=== PATIENT | female | born 1970 | race Caucasian/White ===

== ENCOUNTER → 2017-09-08 | Outpatient (CLI) | payer OTHER ==
[~2017-09-08] MED LIST: CALC625T PO; CETI10TA20 PO; DCS100C PO; HYDR-3583 PO; MOTRIN 800MG PO; NAPR250T34 PO
--- NOTE | 2017-09-09 13:06 | Diagnostic Imaging Report ---
Bilateral screening mammogram 2D views with tomosynthesis. The current study was also evaluated with a Computer Aided Detection (CAD) system. INDICATION: Screening. No current complaints stated on the questionnaire. COMPARISON: 09/02/16. FINDINGS: The breasts are composed of heterogeneously dense parenchyma which may decrease mammographic sensitivity. There is a biopsy clip seen in the outer aspect of the left breast. Allowing for technique and positional differences, no suspicious change is seen. IMPRESSION: No significant change. ACR BI-RADS Category 2: Benign findings. Result letter will be mailed to the patient. Note: At least 10% of breast cancer is not imaged by mammography. Dictated on workstation # [id number]
== END ==
LOC: RAD 09:50
PROVIDERS: ATTEND Nurse Practitioner Family
DX: Z12.31 Encounter for screening mammogram for malignant neoplasm of breast (principal)

== ENCOUNTER → 2018-07-10 | Outpatient (CLI) | payer OTHER ==
[2018-07-10 09:26] LABS: BASOPHILS % (AUTO) 0 % (0-10); EOSINOPHILS # (AUTO) 0.1 10^3/uL (0.0-0.3); EOSINOPHILS % (AUTO) 1 % (0-10); HEMATOCRIT 37 % (35-52); HEMOGLOBIN 13.1 G/DL (11.5-16.0); LYMPHOCYTES # (AUTO) 1.3 X 10^3 (1.0-4.0); LYMPHOCYTES % (AUTO) 19 % (12-44); MEAN CORPUSCULAR HEMOGLOBIN 30 PG (25-34); MEAN CORPUSCULAR HGB CONC 35 G/DL (32-36); MEAN CORPUSCULAR VOLUME 86 FL (80-99); MEAN PLATELET VOLUME 10.3 FL (7.4-10.4); MONOCYTES # (AUTO) 0.4 X 10^3 (0.0-1.0); MONOCYTES % (AUTO) 6 % (0-12); NEUTROPHILS # (AUTO) 4.9 X 10^3 (1.8-7.8); NEUTROPHILS % (AUTO) 74 % (42-75); PLATELET COUNT 300 10^3/uL (130-400); RED BLOOD COUNT 4.34 10^6/uL (4.35-5.85); RED CELL DISTRIBUTION WIDTH 13.4 % (10.0-14.5); WHITE BLOOD COUNT 6.6 10^3/uL (4.3-11.0)
[2018-07-10 09:49] LABS: ALANINE AMINOTRANSFERASE 13 U/L (0-55); ALBUMIN 4.4 GM/DL (3.2-4.5); ALKALINE PHOSPHATASE 73 U/L (40-136); BILIRUBIN,TOTAL 0.5 MG/DL (0.1-1.0); BUN/CREATININE RATIO 13; CALCIUM 9.5 MG/DL (8.5-10.1); CARBON DIOXIDE 24 MMOL/L (21-32); CHLORIDE 105 MMOL/L (98-107); CHOLESTEROL 134 MG/DL (< 200); GFR ESTIMATED > 60; GLUCOSE 103 MG/DL (70-105); HDL CHOLESTEROL 40 MG/DL (40-60); POTASSIUM 4.3 MMOL/L (3.6-5.0); SODIUM 139 MMOL/L (135-145); TOTAL PROTEIN 7.5 GM/DL (6.4-8.2); TRIGLYCERIDES 82 MG/DL (<150); VLDL CHOLESTEROL 16 MG/DL (5-40)
[2018-07-10 10:13] LABS: FREE T4 (FREE THYROXINE) 1.12 NG/DL (0.70-1.48)
== END ==
LOC: LAB 09:10
PROVIDERS: ATTEND Family Medicine
DX: Z00.00 Encounter for general adult medical examination without abnormal findings (principal); R73.9 Hyperglycemia, unspecified
CPT/HCPCS: 36415; 80053; 80061; 83036; 84439; 84443; 85025

== ENCOUNTER → 2018-09-21 | Outpatient (CLI) | payer OTHER ==
--- NOTE | 2018-09-21 19:10 | Diagnostic Imaging Report ---
INDICATION: Routine screening. COMPARISON: Comparison is made with prior mammograms from 09/08/2017 and 09/02/2016. TECHNIQUE: 2D and 3D bilateral screening mammography was performed with computer-aided detection (CAD) system. FINDINGS: Both breasts are heterogeneously dense, limiting the sensitivity of mammography. Biopsy clip in the outer right breast is again noted. No dominant mass or malignant-appearing microcalcifications are seen. The axillae are unremarkable. IMPRESSION: No mammographic features suspicious for malignancy are identified. ACR BI-RADS Category 2: Benign findings. Result letter will be mailed to the patient. Note: At least 10% of breast cancer is not imaged by mammography. Dictated by: Dictated on workstation # [id number]
== END ==
LOC: RAD 09:24
PROVIDERS: ATTEND Nurse Practitioner Family
DX: Z12.31 Encounter for screening mammogram for malignant neoplasm of breast (principal)
CPT/HCPCS: 77067

== ENCOUNTER → 2018-11-27 | Outpatient (CLI) | payer OTHER ==
[2018-11-27 14:50] LABS: BASOPHILS % (AUTO) 1 % (0-10); EOSINOPHILS # (AUTO) 0.2 10^3/uL (0.0-0.3); EOSINOPHILS % (AUTO) 2 % (0-10); HEMATOCRIT 38 % (35-52); HEMOGLOBIN 13.3 G/DL (11.5-16.0); LYMPHOCYTES % (AUTO) 23 % (12-44); MEAN CORPUSCULAR HEMOGLOBIN 30 PG (25-34); MEAN CORPUSCULAR HGB CONC 35 G/DL (32-36); MEAN CORPUSCULAR VOLUME 85 FL (80-99); MEAN PLATELET VOLUME 9.7 FL (7.4-10.4); MONOCYTES # (AUTO) 0.8 X 10^3 (0.0-1.0); MONOCYTES % (AUTO) 9 % (0-12); NEUTROPHILS # (AUTO) 5.8 X 10^3 (1.8-7.8); NEUTROPHILS % (AUTO) 66 % (42-75); PLATELET COUNT 323 10^3/uL (130-400); RED CELL DISTRIBUTION WIDTH 14.4 % (10.0-14.5); WHITE BLOOD COUNT 8.8 10^3/uL (4.3-11.0)
[2018-11-27 15:10] LABS: ALANINE AMINOTRANSFERASE 13 U/L (0-55); ALBUMIN 4.2 GM/DL (3.2-4.5); ALKALINE PHOSPHATASE 79 U/L (40-136); BILIRUBIN,TOTAL 0.2 MG/DL (0.1-1.0); BUN/CREATININE RATIO 16; CALCIUM 9.5 MG/DL (8.5-10.1); CARBON DIOXIDE 26 MMOL/L (21-32); CHLORIDE 103 MMOL/L (98-107); CREATININE SERUM 0.88 MG/DL (0.60-1.30); GFR ESTIMATED > 60; GLUCOSE 113 MG/DL (70-105); POTASSIUM 3.9 MMOL/L (3.6-5.0); SODIUM 137 MMOL/L (135-145); TOTAL PROTEIN 7.4 GM/DL (6.4-8.2)
== END ==
LOC: LAB 13:56
PROVIDERS: ATTEND Family Medicine
DX: N93.9 Abnormal uterine and vaginal bleeding, unspecified (principal); R53.83 Other fatigue
CPT/HCPCS: 36415; 80053; 84439; 84443; 85025

== ENCOUNTER → 2018-12-04 | Outpatient (CLI) | payer OTHER ==
--- NOTE | 2018-12-04 17:02 | Diagnostic Imaging Report ---
INDICATION: Cramping and bleeding. TECHNIQUE: Multiple real-time grayscale images were obtained over the pelvis in various projections both transabdominally and endovaginally. FINDINGS: The uterus measures 11 x 6.8 x 5.6 cm. Endometrial thickness is 8 mm. There appears to be a 2.3 cm fibroid in the fundus of the uterus. Both ovaries are normal in size and morphology and demonstrate normal blood flow. There is a 2.8 cm right ovarian cyst. There is a 1.7 cm left ovarian cyst. There are no other adnexal masses. There is no free pelvic fluid. IMPRESSION: Fundal fibroid. Bilateral ovarian cysts. Dictated by: Dictated on workstation # [id number]
== END ==
LOC: RAD 14:20
PROVIDERS: ATTEND Family Medicine
DX: D25.9 Leiomyoma of uterus, unspecified (principal)
CPT/HCPCS: 76830; 76856

== ENCOUNTER 2019-02-28 11:31 | Outpatient (CLI) | payer OTHER ==
[~2019-02-28] VITALS: Ht 172.7 cm; Wt 97.5 kg
[2019-02-28] MEDS ORDERED: LISI1TAB10 PO (11:41)
[2019-02-28 12:09] LABS: BASOPHILS % (AUTO) 0 % (0-10); EOSINOPHILS # (AUTO) 0.1 10^3/uL (0.0-0.3); EOSINOPHILS % (AUTO) 1 % (0-10); HEMATOCRIT 37 % (35-52); HEMOGLOBIN 12.6 G/DL (11.5-16.0); LYMPHOCYTES # (AUTO) 1.5 X 10^3 (1.0-4.0); LYMPHOCYTES % (AUTO) 19 % (12-44); MEAN CORPUSCULAR HEMOGLOBIN 29 PG (25-34); MEAN CORPUSCULAR HGB CONC 34 G/DL (32-36); MEAN CORPUSCULAR VOLUME 84 FL (80-99); MEAN PLATELET VOLUME 9.4 FL (7.4-10.4); MONOCYTES # (AUTO) 0.5 X 10^3 (0.0-1.0); MONOCYTES % (AUTO) 6 % (0-12); NEUTROPHILS # (AUTO) 5.7 X 10^3 (1.8-7.8); NEUTROPHILS % (AUTO) 74 % (42-75); PLATELET COUNT 324 10^3/uL (130-400); RED CELL DISTRIBUTION WIDTH 13.7 % (10.0-14.5); WHITE BLOOD COUNT 7.7 10^3/uL (4.3-11.0)
[2019-02-28 12:18] VITALS: BP 128/81
== END 2019-02-28 12:00 | disposition home or self-care (01) ==
LOC: PREOP 11:31
PROVIDERS: ATTEND Obstetrics & Gynecology
DX: Z01.812 Encounter for preprocedural laboratory examination (principal); Z11.2 Encounter for screening for other bacterial diseases; N93.8 Other specified abnormal uterine and vaginal bleeding; N92.1 Excessive and frequent menstruation with irregular cycle; N94.6 Dysmenorrhea, unspecified; N39.3 Stress incontinence (female) (male); D64.9 Anemia, unspecified
CPT/HCPCS: 36415; 85025; 86850; 86900; 86901; 87081

== ENCOUNTER 2019-03-09 10:28 | Day surgery (SDC) | payer OTHER ==
[2019-03-09] VITALS (11 sets, daily range): BP systolic 99–132; BP diastolic 45–77
[~2019-03-09] VITALS: Ht 172.7 cm; Wt 97.5 kg
--- NOTE | 2019-03-09 07:25 | Progress Note-Pre Operative ---
Pre-Operative Progress Note H&P Reviewed The H&P was reviewed, patient examined and no changes noted. Date Seen by Provider: Mar 09, 2019 Time Seen by Provider: 11:20 Date H&P Reviewed: Mar 09, 2019 Time H&P Reviewed: 11:20 Pre-Operative Diagnosis: NAS SIMS MD Mar 09, 2019 07:25
[~2019-03-09 10:28] MED LIST changes: +DOCU-143 PO; +ESTR1TAB24 PO; +IBUP-1780 PO; +LISI1TAB10 PO; +OXYC1TAB87 PO
[2019-03-09] MEDS ORDERED: ESTROGENS CONJ IV 25 MG/5 ML (PREMARIN) VIAL IV ONE (10:30)
[2019-03-09] MEDS ORDERED: ceFAZolin INJECTION 1,000 MG in WATER (STERILE) FOR INJECTION 10 ML IV ONE (10:30)
[2019-03-09] MEDS: LACTATED RINGERS 1,000 ML IV PRN ×2 (10:55→12:28)
[2019-03-09] MEDS ORDERED: ONDANSETRON 4 MG/2 ML (SDV) Z0FRAN ONE (11:09)
[2019-03-09] MEDS ORDERED: DEXAMETHASONE 10 MG/ML (DECADRON) 1 ML VIAL ONE (11:09)
[2019-03-09] MEDS ORDERED: proPOfol 200 MG/20 ML (DIPRIVAN) VIAL IV ONE (11:09)
[2019-03-09] MEDS ORDERED: LIDOCAINE PF 2% 5 ML (XYLOCAINE) VIAL ONE (11:09)
[2019-03-09] MEDS ORDERED: SEVOFLURANE (ULTANE) 15 ML INHAL SOLN ONE ×9 (11:09→14:01)
[2019-03-09] MEDS ORDERED: ROCURONIUM 10 MG/ML 5 ML SYRINGE IV ONE ×2 (11:09→13:31)
[2019-03-09] MEDS ORDERED: fentaNYL INJECTION 100 MCG/2 ML AMP ONE (11:10)
[2019-03-09] MEDS ORDERED: MIDAZOLAM 2 MG/2 ML (VERSED) VIAL ONE (11:10)
[2019-03-09] MEDS ORDERED: BUP/EPI 0.25% 1:200,000 (MARCAINE) 10 ML VIAL IJ ONE (11:17)
[2019-03-09] MEDS ORDERED: ESTRADIOL VAGINAL CREAM 42.5 GM (ESTRACE) VG ONE (11:17)
--- NOTE | 2019-03-09 11:39 | Progress Note-Pre Operative ---
Pre-Operative Progress Note H&P Reviewed The H&P was reviewed, patient examined and no changes noted. Date Seen by Provider: Mar 09, 2019 Time Seen by Provider: 11:39 Date H&P Reviewed: Mar 09, 2019 Time H&P Reviewed: 11:39 Pre-Operative Diagnosis: DUB/Prolapse/JESS/menorrhagia AGNES BARRIGA MD Mar 09, 2019 11:39
--- NOTE | 2019-03-09 11:41 | Progress Note-Post Operative ---
Post-Operative Progess Note Surgeon (s)/Jackhammer Operator (s) Surgeon AGNES BARRIGA MD Jackhammer Operator: Floridalma Ramos Pre-Operative Diagnosis DUB/Prolapse/JESS/menorrhagia Post-Operative Diagnosis same Procedure & Operative Findings Date of Procedure 03/09/19 Procedure Performed/Findings TLH/BSO/A&Prepair and concurrent PVS and Cysto by Dr. Pepper Anesthesia Type geta Estimated Blood Loss Estimated blood loss (mL): 150 cc Specimens/Packing Specimens Removed uterus tubes and ovaries Packing: AGNES Clancy MD Mar 09, 2019 11:41
--- NOTE | 2019-03-09 11:44 | Discharge Instructions ---
Discharge Instructions Discharge Medications New, Converted or Re-Newed RX: RX on Chart Patient Instructions Patient Instructions: yes Return to The Hospital For: yes Activity & Diet Discharge Diet: No Restrictions Activity as Tolerated: No Orders-Post D/C & Referrals Follow Up Appt: RTC Tuesday March 12, 2019 at 930 AM for staple removal Call to make follow up appt. for patient in 4 weeks. Follow up with Dr Pepper per his instructions Activity: Rest for 24 hours, than as tolerated. Wound Care: May remove Band-Aid tomorrow. Replace as desired. Keep incisions clean and dry. Wash daily with soap and water. Please call in RX to patient pharmacy. Diet: As tolerated-Clear Liquids only if nauseated. shower or tub bathe as desired. No driving for 24 hours, no alcoholic beverages for 24 hours, and nothing per vagina (no tampons, douching, or intercourse) for 8 weeks. Patient to return to the clinic as soon as possible for: Temperature greater than 101F, Severe Pain, Foul discharge from incision or vagina, Excessive Bleeding (more than a period). AGNES BARRIGA MD Mar 09, 2019 11:44
[2019-03-09] MEDS ORDERED: ATROPINE INJ 0.4 MG/ML SDV ONE (12:17)
[2019-03-09] MEDS ORDERED: WATER (STERILE) FOR INJECTION 10 ML ONE (13:06)
[2019-03-09] MEDS ORDERED: ESTROGENS CONJ IV 25 MG/5 ML (PREMARIN) VIAL ONE (13:06)
[2019-03-09] MEDS ORDERED: KETOROLAC 30 MG/ML VIAL ONE ×2 (13:07→14:00)
[2019-03-09] MEDS ORDERED: GLYCOPYRROLATE 0.2 MG/ML (ROBINUL) 2 ML VIAL ONE (13:59)
[2019-03-09] MEDS ORDERED: NEOSTIGMINE 1 MG/ML 5 ML SYRINGE ONE (13:59)
--- NOTE | 2019-03-09 13:59 | Progress Note-Post Operative ---
Post-Operative Progess Note Surgeon (s)/Scudding Inspector (s) Surgeon NAS GAMEZ MD Scudding Inspector: Kenia BARRIGA Pre-Operative Diagnosis JESS Post-Operative Diagnosis JESS Procedure & Operative Findings Date of Procedure 03/09/19 Procedure Performed/Findings PVS AND CYSTOSCOPY Anesthesia Type GENERAL Estimated Blood Loss Estimated blood loss (mL): NEGLIGIBLE Specimens/Packing Specimens Removed NONE Packing: ESTRACE VAGINAL PACK NAS GAMEZ MD Mar 09, 2019 13:59
[2019-03-09] MEDS: KETOROLAC 30 MG/ML VIAL IVP SCH ×2 (14:15→19:58)
[2019-03-09] MEDS ORDERED: PROMETHAZINE INJ 25 MG/ML (PHENERGAN) AMP IVP ONE (14:30)
[2019-03-09] MEDS ORDERED: HYDROmorphone 2 MG/ML VIAL (DILAUDID) IV ONE (14:30)
[2019-03-09] MEDS ORDERED: morphine INJ 10 MG/ML 1ML (SYR OR VIAL) IVP ONE (14:30)
[2019-03-09] MEDS ORDERED: ONDANSETRON 4 MG/2 ML (SDV) Z0FRAN IVP PRN ×2 (14:30→15:45)
[2019-03-09] MEDS ORDERED: MEPERIDINE (DEMEROL) INJ 50 MG/ML IVP ONE (14:30)
[2019-03-09] MEDS: ESTROGENS CONJ IV 25 MG/5 ML (PREMARIN) VIAL IVP ONE (14:35)
--- NOTE | 2019-03-09 15:30 | NUR ---
BRENNAN ARANGO admitted to room , with an admitting diagnosis of POSTOP ROBOTIC HYSTERECTOMY WITH PUBO VAG SLING AND CYSTO, A/P REPAIR, on 03-09-19 from [facility] via [facility], accompanied by CLOTHES DRIER REPAIRER.BRENNAN ARANGO introduced to surroundings, call light, bed controls, phone, TV, temperature control, lights, meal times, smoking policy, visitor policy, side rail policy, bathrooms and showers. Patient Rights given to patient in the handbook. BRENNAN ARANGO verbalizes understanding that [facility] is not responsible for the loss or damage to any personal effects or valuables that are kept in the patients posession during their hospitalization. The following Patient Care Plans were discussed with the PATIENT: Discharge Planning, PAIN MANANGEMENT, POSTOP POC. BRENNAN ARANGO verbalizes understanding of Interdisciplinary Patient Education. Patient and/or family were informed about the Rapid Response Team and its purpose.
[2019-03-09] MEDS ORDERED: BENZOCAINE/MENTHOL (DERMOPLAST) 56 ML CAN TP PRN (15:45)
[2019-03-09] MEDS ORDERED: PROMETHAZINE INJ 25 MG/ML (PHENERGAN) AMP IM PRN (15:45)
[2019-03-09] MEDS ORDERED: MEPERIDINE (DEMEROL) INJ 100 MG/ML IM PRN (15:45)
[2019-03-09] MEDS ORDERED: WATER (STERILE) FOR INJ 10 ML BTL INJ ONE (15:45)
[2019-03-09] MEDS: D5 LR IV SOLUTION 1,000 ML IV SCH (17:45)
[2019-03-09] MEDS: oxyCODONE/APAP 5/325MG (PERCOCET 5) TABLET PO PRN (18:13)
--- NOTE | 2019-03-09 18:20 | NUR ---
report received form ricki vazquez at this time
--- NOTE | 2019-03-09 19:05 | NUR ---
report given to emely robison at this time.
--- NOTE | 2019-03-09 19:42 | OPERATIVE REPORT ---
DATE OF SERVICE: 03/09/2019 PREOPERATIVE DIAGNOSIS: Stress urinary incontinence, on my part. POSTOPERATIVE DIAGNOSIS: Stress urinary incontinence, on my part. OPERATION PERFORMED: Pubovaginal sling and cystoscopy. SURGEON: Nas Gamez MD ROTO ROOTER OPERATOR: Jair Jules MD ANESTHESIA: General. COMPLICATIONS: None. DESCRIPTION OF PROCEDURE: After Dr. Jules performed his part of the surgery that he would dictate, I went ahead and inserted a Mejias catheter draining clear urine. The Solyx device was passed on both sides using the described technique and the sling was sitting nicely under the mid urethra with no twisting, no tension, passage of a curved hemostat between it and the underlying tissue easily. I removed the Mejias catheter and performed cystoscopy to confirm the integrity of the urethra and bladder with no foreign body and the presence of the sling under the mid urethra. I left the bladder half full. I removed the cystoscope to perform a manual Valsalva maneuver that was negative. I reinserted a Mejias catheter draining clear fluid. Estimated blood loss for my part negligible then Dr. Jules performed the rest of the surgery that he will dictate. Job ID: [id number] DocumentID: [id number] Dictated Date: 03/09/2019 14:01:46 Control Equipment Electrician Date: 03/09/2019 19:42:26 Dictated By: NAS GAMEZ MD
[2019-03-10 00:11] VITALS: BP 115/71
[2019-03-10] MEDS: oxyCODONE/APAP 5/325MG (PERCOCET 5) TABLET PO PRN (00:11)
[2019-03-10] MEDS: D5 LR IV SOLUTION 1,000 ML IV SCH ×2 (02:06→08:27)
[2019-03-10] MEDS: KETOROLAC 30 MG/ML VIAL IVP SCH ×2 (02:43→08:21)
--- NOTE | 2019-03-10 04:53 | OPERATIVE REPORT ---
DATE OF SERVICE: 03/09/2019 PREOPERATIVE DIAGNOSES: Dysfunctional uterine bleeding, uterine prolapse, stress urinary incontinence and menorrhagia. POSTOPERATIVE DIAGNOSES: Dysfunctional uterine bleeding, uterine prolapse, stress urinary incontinence and menorrhagia with pelvic adhesions. OPERATIVE PROCEDURE: Total laparoscopic hysterectomy with bilateral salpingo-oophorectomy as well as anterior, posterior vaginal repair with enterocele repair and with Dr. Pepper performing a pubovaginal sling and cystoscopy. OPERATIVE DESCRIPTION: With the patient in the supine position under satisfactory general anesthesia, she was repositioned in dorsal lithotomy position in the [facility] and prepped and draped in the usual manner for abdominal and vaginal surgery. Urinary bladder was drained via Mejias catheter to dependent drainage. A weighted speculum was placed in posterior fornix of vagina, cervix exposed and grasped anteriorly with a single tooth tenaculum. Uterus sounded to 12.5 cm with uterine sound. Cervix was then serially dilated with Max dilators to accommodate a Nanette II manipulator, which was placed in the usual manner using a 6 mm x 8 cm uterine probe and a 25 mm colpotomy ring. Sutures of #1 Vicryl placed at 3 and 9 o'clock position of the cervix to affix the uterus to the manipulator. The patient was brought in low dorsal lithotomy position a 12 mm incision was made superior to the umbilicus. Veress needle was placed through that incision into the abdominal cavity and then correct placement was confirmed with the water drop test. The abdomen was insufflated with 2.4 liters of carbon dioxide and then the Veress needle was removed and an attempt was made to aspirate gas from the intended cord site with a 1.5-inch 22-gauge needle. Gas could not be aspirated even though the abdomen was tympanitic. Gas could easily be aspirated at the left upper quadrant in both lateral periumbilical regions. I suspected adhesions in the intended area for the port placement, so rather than placing a 12 mm port, I placed a 5 mm Optiview laparoscopic port under direct vision in the left upper quadrant. Through that port, the laparoscope was introduced. There was obvious omental adhesions to the abdominal wall just above the umbilicus where a 12 mm port needed to be placed. The lateral 8 mm ports were placed for the hysterectomy through incisions of those sizes 9 cm lateral to the umbilicus. All port sites were infiltrated with 0.25% Marcaine with epinephrine prior to incision and port placement. With those ports in place using EndoShears through the left lateral port, the adhesions on the anterior abdominal wall were taken down sharply and with electrocautery until the entire omentum was freed exposing the anterior abdominal wall. The 1.5 gauge needle could then be inserted and seen clearly right in the midst where this dissection had taken place. Now under direct vision, the 12 mm port was placed. This port was found to be just a bit too short, so it was removed over an exchanging duy and then a long 12 mm port was replaced into position. The patient was now placed in Trendelenburg allowing the bowel spill out of the pelvis. The operative column was advanced on the patient and docked and then operative instruments were placed in right and left lateral ports and I retired to the da Haydee console. At the console using the vessel sealer on the right, bipolar fenestrated grasper on the left, the pelvis was first examined. Both the right ovary and tube were relatively normal in appearance. The right ureter was seemed to peristalse. The left tube and ovary were obscured by adhesions of the sigmoid over the left pelvic brim. These adhesions were generally light and filmy and were clamped, cauterized and divided using the vessel sealer until the bowel could spill up out of the pelvis, exposing the IP ligament completely and also exposing access to the left tube and ovary, which were adherent to the ovarian fossa on the left and the sigmoid was adherent to that as well. Those adhesions were taken free and eventually with all adhesions freed, the anatomy restored to normal. The left ureter could seem to be peristalsing. The laparoscope was then rotated. The appendix was identified. It was a normal vermiform appendix that was left in situ. The intended procedure was now initiated, grasping and elevating the right fallopian tube and ovary and using the vessel sealer to clamp, cauterize and divide the mesovarium across the round ligament and then across the broad ligaments to the cardinal ligament down on the cardinal ligament to allow eventually for removal of the uterus. The same procedure was performed on the left. The left side of the pelvis was somewhat dense and fibrotic. The ureter was well down out of the way, but then the tissue was restricting the movement of the uterus quite a bit and that tissue was taken down and the uterus became more mobile and free. With the adnexa freed, the anterior lower uterine segment peritoneum was exposed. The vessel sealer was replaced with a monopolar shear and then the anterior lower uterine segment peritoneum was divided allowing the bladder to be dissected down off the lower uterine segment. The colpotomy incision was then started at 12 o'clock position on the cervix and then continued circumferentially and entire cervix was exposed. This freed the uterus completely and it was extracted through the vagina with some difficulty secondary to the size of the uterus, which had obvious fibroids and likely endometriosis. Eventually, it was passed through the vagina with the tubes and ovaries still attached and the vaginal cuff was closed with 2 sutures of V-Loc barbed suture starting first from the right angle and continuing almost to the left angle and then using a second suture from the left angle to finish the closure. Care was taken to ensure inclusion of the uterine vessel pedicles in the angle stitches. The bladder peritoneum was brought back onto the cuff with the last several stitches using suture. Both ureters were confirmed to peristalse. There was no abnormal pathology remaining. There was minimal amount of blood in the pelvis. At this point, the laparoscopic portion of the procedure was halted. The operative instruments were removed under direct vision as were the ports. The abdomen was evacuated of insufflating gas in the process of removing the ports. The patient was brought out of Trendelenburg. The skin incisions were closed with yamilka after closing the fascia at the supraumbilical incision with [id number] suture of 2-0 Vicryl. The patient now repositioned for the vaginal portion of the surgery. She was positioned in the dorsal lithotomy position. Weighted speculum was placed in the posterior fornix of vagina. The vaginal wall was grasped in its midpoint with two Sonali clamps and then a vaginotomy incision was made in the midline and continued almost to the apex of the vagina to approximately 1.5 cm from the urethral meatus. Very careful dissection was undertaken to free the bladder from the overlying vaginal muscularis mucosa. The dissection was carried out to the pubic rami bilaterally. Then endopelvic fascia was plicated with 2-0 Vicryl sutures, elevating the bladder and lengthening the urethra. At this point, Dr. Pepper assumed care of the patient and I remained to assist Dr. Pepper. Dr. Pepper performed a pubovaginal sling and cystoscopy without difficulty. He confirmed the integrity of the bladder and the evidence of urine efflux in to the bladder from both ureters. Upon completion of his portion of the procedure, he retired from the operating room and I resumed care of the patient and I closed the anterior vaginal wall after removing redundant vaginal tissue. Posterior repair was then affected by placing Sonali clamps on the perineum and the hymenal ring at 5 and 7 o'clock position and inverted triangle of skin was removed from the perineal body and upright triangle was removed from the posterior vaginal floor. The rectovaginal space was entered sharply and dissected bluntly to the apex of the vagina where it was explored for an enterocele it being a small enterocele that was obliterated with a 2-0 Vicryl pursestring suture and then additional sutures of 2-0 Vicryl were used to obliterate the rectovaginal space and to restore the perineal body. The posterior vaginal wall was then closed with a running locked suture of 2-0 Vicryl Rapide starting from the apex of the vagina after removal of redundant posterior vaginal wall muscularis mucosa that closure was continued down to the hymenal ring where it was brought deep behind the hymenal ring and then the deep tissue was closed subcutaneously and then the perineal body wall was reapproximated with a running subcuticular stitch back up to the hymenal ring where the suture was tied. Digital rectal exam confirmed the structure and integrity of the rectum and no sutures into or through the rectal mucosa and stricture or stenosis of the rectum. The vagina was now filled with Estrace vaginal cream and a pack of Kerlix gauze was placed. The Mejias catheter was left to dependent drainage. At this point, the patient was uneventfully awakened from general anesthesia and transferred to recovery room in stable condition. ESTIMATED BLOOD LOSS: Around 150 mL, the bulk of that from the vaginal portion of procedure. Sponge and needle counts again were correct. Job ID: [id number] DocumentID: [id number] Dictated Date: 03/09/2019 19:42:46 Hospice Home Health Aide Date: 03/09/2019 22:17:51 Dictated By: AGNES BARRIGA MD
[2019-03-10 06:10] VITALS: BP 104/63
[2019-03-10] MEDS: ESTROGENS CONJ IV 25 MG/5 ML (PREMARIN) VIAL IVP ONE (08:27)
[2019-03-10] MEDS ORDERED: IBUPROFEN 800 MG (MOTRIN) TAB PO ONE (08:28)
[2019-03-10 08:37] VITALS: BP 119/69
--- NOTE | 2019-03-10 08:37 | NUR ---
AM shift assessment completed and vital signs obtained, see interventions. Scheduled Colace, Estrace, Motrin, and Zyrtec (Home Med) PO given at this time. Patient reports taking the other Home Med at night time. Plan of care reviewed with patient and patient verbalizes understanding. Questions answered.
--- NOTE | 2019-03-10 08:48 | NUR ---
Patient up ambulating in the halls.
[2019-03-10] MEDS ORDERED: LISINOPRIL PO SCH (09:00)
[2019-03-10] MEDS ORDERED: DOCUSATE SODIUM 100 MG (COLACE) CAP PO SCH (09:00)
[2019-03-10] MEDS ORDERED: HYDROCHLOROTHIAZIDE PO SCH (09:00)
[2019-03-10] MEDS ORDERED: ceTIRizine 10 MG (ZyrTEC) TAB NON-FORMULARY PO SCH (09:00)
[2019-03-10] MEDS ORDERED: ESTRADIOL 1 MG TAB (ESTRACE) PO SCH (09:00)
--- NOTE | 2019-03-10 09:30 | NUR ---
Dr. Jules here to see patient. New orders received.
--- NOTE | 2019-03-10 09:32 | Progress Note-Standard ---
Standard Progress Note Progress Notes/Assess & Plan Date Seen by a Provider: Mar 10, 2019 Time Seen by a Provider: 09:32 Progress/Assessment & Plan Patient is without complaint. She is ambulating, she has started voiding, she is tolerating oral intake and has good pain control. Vital Signs 03/09/19 03/10/19 15:10 06:10 Temp 98.4 Pulse 85 Resp 18 B/P (MAP) 104/63 (77) Pulse Ox 98 O2 Delivery Room Air O2 Flow Rate 3 Vital signs are stable. Afebrile. The abdomen is benign. Bowel sounds are present. Extremities show no clubbing or cyanosis. As the Homans sign. Assessment and plan postoperative day number 1 oil plans for discharge home with follow-up in clinic Final Diagnosis Dysfunctional uterine bleeding/menorrhagia/uterine prolapse and stress urinary incontinence AGNES BARRIGA MD Mar 10, 2019 09:32
--- NOTE | 2019-03-10 09:33 | NUR ---
Patient up ambulating in the halls.
--- NOTE | 2019-03-10 10:27 | Anesthesia-General Post-Op ---
General Patient Condition Mental Status/LOC: Same as Preop Cardiovascular: Satisfactory Nausea/Vomiting: Absent Respiratory: Satisfactory Pain: Controlled Complications: Absent Post Op Complications Complications None Follow Up Care/Instructions Patient Instructions None needed. Anesthesia/Patient Condition Patient Condition Patient is doing well, no complaints, stable vital signs, no apparent adverse anesthesia problems. No complications reported per nursing. DALILA LOW CRNA Mar 10, 2019 10:27
--- NOTE | 2019-03-10 11:06 | NUR ---
Dr. Pepper called to check on patient's status. New orders received.
--- NOTE | 2019-03-10 12:05 | NUR ---
Patient up ambulating in halls.
--- NOTE | 2019-03-10 12:25 | NUR ---
Patient reported voiding. 200 cc clear urine noted. Bladder scan performed showing 130 ml residual.
[2019-03-10 12:30] VITALS: BP 125/72
--- NOTE | 2019-03-10 12:37 | NUR ---
Dr. Pepper updated on patient's status. New orders received.
[2019-03-10] MEDS ORDERED: IBUP-1780 PO (12:52)
--- NOTE | 2019-03-10 13:04 | NUR ---
Discharge instructions and medications reviewed with patient both written and verbally. Patient verbalizes understanding and denies any current questions or concerns at this time.
--- NOTE | 2019-03-10 13:25 | NUR ---
Patient discharged at this time via wheelchair and accompanied down to awaiting private vehicle by Karen Nguyen RN. No signs or symptoms of distress noted.
[2019-03-10] MEDS ORDERED: IBUPROFEN 800 MG (MOTRIN) TAB PO SCH (15:45)
== END 2019-03-10 13:25 | disposition home or self-care (01) ==
LOC: SDC 10:28 → WS 15:30 → SDC 03-10 13:25
PROVIDERS: ATTEND Obstetrics & Gynecology
DX: N81.4 Uterovaginal prolapse, unspecified (principal); N39.3 Stress incontinence (female) (male); N93.8 Other specified abnormal uterine and vaginal bleeding; N72 Inflammatory disease of cervix uteri; N88.8 Other specified noninflammatory disorders of cervix uteri; D25.1 Intramural leiomyoma of uterus; D25.2 Subserosal leiomyoma of uterus; N83.11 Corpus luteum cyst of right ovary; D27.1 Benign neoplasm of left ovary; N92.0 Excessive and frequent menstruation with regular cycle; I10 Essential (primary) hypertension; Z79.899 Other long term (current) drug therapy
CPT/HCPCS: 84703; 86850; 86900; 86901; 88307; 94664

== ENCOUNTER → 2019-09-24 | Outpatient (CLI) | payer OTHER ==
--- NOTE | 2019-09-24 09:57 | Diagnostic Imaging Report ---
INDICATION: Routine screening. Comparison is made with prior mammogram from 09/21/2018 and 09/08/2017. 2-D and 3-D bilateral screening mammography was performed with CAD. Both breasts are heterogeneously dense, limiting the sensitivity of mammography. Parenchymal pattern is stable. Biopsy clip outer right breast is again noted. No dominant mass or malignant-appearing microcalcifications are seen. Axillae are unremarkable. IMPRESSION: BI-RADS Category 2 No mammographic features suspicious for malignancy are identified. ACR BI-RADS Category 2: Benign findings. Result letter will be mailed to the patient. Note: At least 10% of breast cancer is not imaged by mammography. Dictated by: Dictated on workstation # [id number]
== END ==
LOC: RAD 08:17
PROVIDERS: ATTEND Family Medicine
DX: Z12.31 Encounter for screening mammogram for malignant neoplasm of breast (principal)
CPT/HCPCS: 77067

== ENCOUNTER 2020-05-06 13:00 | Outpatient (RCR) | payer OTHER ==
[~2020-05-06 13:00] MED LIST changes: -CETI10TA20 PO; +CETI10TA49 PO; -LISI1TAB10 PO; +LISI1TAB26 PO
== END 2020-07-02 | disposition home or self-care (01) ==
PROVIDERS: ATTEND Orthopaedic Surgery
DX: M75.01 Adhesive capsulitis of right shoulder (principal)

== ENCOUNTER → 2020-05-30 | Outpatient (CLI) | payer OTHER ==
[~2020-05-30] MED LIST changes: +CETI10TA21 PO; -CETI10TA49 PO
[2020-05-30 07:52] LABS: BASOPHILS % (AUTO) 0 % (0-10); EOSINOPHILS # (AUTO) 0.1 10^3/uL (0.0-0.3); EOSINOPHILS % (AUTO) 2 % (0-10); HEMATOCRIT 37 % (35-52); HEMOGLOBIN 12.9 G/DL (11.5-16.0); LYMPHOCYTES # (AUTO) 1.5 X 10^3 (1.0-4.0); LYMPHOCYTES % (AUTO) 23 % (12-44); MEAN CORPUSCULAR HEMOGLOBIN 30 PG (25-34); MEAN CORPUSCULAR HGB CONC 35 G/DL (32-36); MEAN CORPUSCULAR VOLUME 85 FL (80-99); MEAN PLATELET VOLUME 9.4 FL (7.4-10.4); MONOCYTES # (AUTO) 0.5 X 10^3 (0.0-1.0); MONOCYTES % (AUTO) 7 % (0-12); NEUTROPHILS # (AUTO) 4.6 X 10^3 (1.8-7.8); NEUTROPHILS % (AUTO) 69 % (42-75); PLATELET COUNT 316 10^3/uL (130-400); RED CELL DISTRIBUTION WIDTH 13.3 % (10.0-14.5); WHITE BLOOD COUNT 6.7 10^3/uL (4.3-11.0)
[2020-05-30 08:15] LABS: ALANINE AMINOTRANSFERASE 11 U/L (0-55); ALKALINE PHOSPHATASE 84 U/L (40-136); BILIRUBIN,TOTAL 0.5 MG/DL (0.1-1.0); BUN/CREATININE RATIO 13; CALCIUM 9.2 MG/DL (8.5-10.1); CARBON DIOXIDE 24 MMOL/L (21-32); CHLORIDE 105 MMOL/L (98-107); CHOLESTEROL 155 MG/DL (< 200); CREATININE SERUM 0.89 MG/DL (0.60-1.30); GFR ESTIMATED > 60; GLUCOSE 105 MG/DL (70-105); HDL CHOLESTEROL 47 MG/DL (40-60); POTASSIUM 4.1 MMOL/L (3.6-5.0); SODIUM 138 MMOL/L (135-145); TRIGLYCERIDES 127 MG/DL (<150); VLDL CHOLESTEROL 25 MG/DL (5-40)
[2020-05-30 08:36] LABS: FREE T4 (FREE THYROXINE) 0.98 NG/DL (0.70-1.48)
== END ==
LOC: LAB 07:35
PROVIDERS: ATTEND Family Medicine
DX: Z00.00 Encounter for general adult medical examination without abnormal findings (principal); I10 Essential (primary) hypertension; E78.2 Mixed hyperlipidemia; R73.9 Hyperglycemia, unspecified
CPT/HCPCS: 36415; 80053; 80061; 83036; 84439; 84443; 85025

== ENCOUNTER → 2020-09-29 | Outpatient (CLI) | payer OTHER ==
[~2020-09-29] MED LIST changes: -CETI10TA21 PO; +CETI10TA49 PO
--- NOTE | 2020-09-29 12:12 | Diagnostic Imaging Report ---
INDICATION: Routine screening. Comparison is made prior mammogram 09/24/2019 and 09/21/2018. 2-D and 3-D bilateral screening mammography was performed with CAD. Both breasts are heterogeneously dense, limiting the sensitivity of mammography. Parenchymal pattern is stable. No dominant mass or malignant appearing microcalcifications are seen. Biopsy clip outer right breast is again noted. Axillae are unremarkable. IMPRESSION: BI-RADS Category 2 No mammographic features suspicious for malignancy are identified. ACR BI-RADS Category 2: Benign findings. Result letter will be mailed to the patient. Note: At least 10% of breast cancer is not imaged by mammography. Dictated by: Dictated on workstation # [id number]
== END ==
LOC: RAD 08:15
PROVIDERS: ATTEND Family Medicine
DX: Z12.31 Encounter for screening mammogram for malignant neoplasm of breast (principal)
CPT/HCPCS: 77063; 77067

== ENCOUNTER 2021-07-15 13:10 | Outpatient (CLI) | payer OTHER ==
[~2021-07-15] VITALS: Ht 170.2 cm; Wt 97.2 kg
[2021-07-15] MEDS ORDERED: CALC-140 PO (13:39)
[2021-07-15] MEDS ORDERED: ZINC50TA58 PO (13:39)
== END 2021-07-15 14:53 ==
LOC: PREOP 13:10
PROVIDERS: ATTEND Internal Medicine
DX: Z01.818 Encounter for other preprocedural examination (principal)

== ENCOUNTER 2021-07-24 06:50 | Day surgery (SDC) | payer OTHER ==
--- NOTE | 2021-07-16 07:07 | HISTORY AND PHYSICAL ---
DATE OF SERVICE: COLONOSCOPY HISTORY AND PHYSICAL DATE OF ADMISSION: . REFERRING PHYSICIAN: Aurelia Logan DO HISTORY OF PRESENT ILLNESS: The patient is a 50-year-old white female referred by Dr. Logan for screening colonoscopy. On initial colonoscopy prior to the age of [address] Corral, she had one polyp. It was repeated 5 years later and reportedly normal. In the past, she had undergone AP resection per Dr. Jules. Prior to this, she was having to alter her truncal positioning while having a bowel movement and straining sounding suspicious for significant stool pocketing due to presumed large rectocele. It resolved after surgery, symptoms, however, over the past several months have been getting worse again without passage of a hard stool. She denies bright red blood per rectum or melena. She denies any associated abdominal pain. Denies otherwise diarrhea or constipation. There is no known family history for colon cancer. PAST MEDICAL HISTORY: Significant for hypertension. PAST SURGICAL HISTORY: Other than an AP repair, significant for total abdominal hysterectomy for benign reasons. SOCIAL HISTORY: She reports no significant alcohol intake and no past smoking history. 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 FAMILY HISTORY: Pertinent for no known family history for GI tract malignancy. REVIEW OF SYSTEMS: CONSTITUTIONAL: Denies night sweats, chills, fever or change in weight. CARDIOVASCULAR: Denies chest pain, orthopnea, PND or pedal edema. PULMONARY: Denies cough, wheezing or shortness of breath. GASTROINTESTINAL: As noted in the HPI. PHYSICAL EXAMINATION: GENERAL: Reveals a pleasant white female, who weighs 214 pounds. VITAL SIGNS: Blood pressure 110/72. HEENT: Unremarkable. Sclerae nonicteric. CHEST: Clear. CARDIOVASCULAR: Reveals a regular rate and rhythm without murmur, S3 or S4. ABDOMEN: Soft, supple without mass, organomegaly or tenderness. EXTREMITIES: Reveal no cyanosis, clubbing or edema. ASSESSMENT AND PLAN: The patient will be set up for a screening colonoscopy. Symptoms suggest the possibility of recurrent rectocele if this is not the case. We did discuss pelvic floor dysfunction and recommendations for a pelvic floor physical therapy. Further recommendations pending colonoscopy results. I thank you for the referral of this pleasant lady. Job ID: [id number] DocumentID: [id number] Dictated Date: 07/08/2021 16:55:03 Bottle Washer Machine Date: 07/08/2021 17:10:24 Dictated By: VISHAL VAZQUEZ MD MTDD
[~2021-07-24] VITALS: Ht 170.2 cm; Wt 97.2 kg
[~2021-07-24 06:50] MED LIST changes: +CALC-140 PO; +ZINC50TA58 PO
[2021-07-24] MEDS ORDERED: LIDOCAINE JELLY 2% 6 ML SYRINGE MM PRN (07:00)
[2021-07-24] MEDS ORDERED: LACTATED RINGERS 1,000 ML IV STA (07:00)
[2021-07-24] MEDS ORDERED: LACTATED RINGERS 1,000 ML IV ONE (07:05)
[2021-07-24 07:16] VITALS: BP 123/82
[2021-07-24] MEDS ORDERED: PROPOFOL INJECTION 50 ML IV ONE (08:00)
[2021-07-24] MEDS ORDERED: MIDAZOLAM 2 MG/2 ML (VERSED) VIAL ONE (08:01)
--- NOTE | 2021-07-24 08:04 | Pre-Op Note & Conscious Sedat ---
Pre-Operative Progress Note H&P Reviewed The H&P was reviewed, patient examined and no changes noted. Date H&P Reviewed: Jul 24, 2021 Time H&P Reviewed: 07:45 Conscious Sedation Pre-Proced ASA Score 2 For ASA 3 and 4: Consider anesthesia and medical clearance. Also, for patients with a history of failed moderate sedation consider anesthesia. Airway Lungs Heart ASA score ASA 1: a normal healthy patient ASA 2: a patient with a mild systemic disease (mid diabetes, controlled hypertension, obesity ASA 3: a patient with a severe systemic disease that limits activity (angina, COPD, prior Myocardial infarction) ASA 4: a patient with an incapacitating disease that is a constant threat to life (CHF, renal failure) ASA 5: a moribund patient not expected to survive 24 hrs. (ruptured aneurysm) ASA 6: a declared brain- patient whose organs are being harvested. For emergent operations, add the letter E after the classification Mallampati Classification Grade 2 Sedation Plan Analgesia, Amnesia, Plan communicated to team members, Discussed options with patient/fam, Discussed risks with patient/fam The patient is an appropriate candidate to undergo the planned procedure, sedation, and anesthesia. The patient immediately re-assessed prior to indication. VISHAL VAZQUEZ MD Jul 24, 2021 08:04
[2021-07-24 08:25] VITALS: BP 104/60
[2021-07-24 08:30] VITALS: BP 112/63
[2021-07-24 08:35] VITALS: BP 112/63
[2021-07-24 09:15] VITALS: BP 114/71
--- NOTE | 2021-07-24 13:45 | OPERATIVE REPORT ---
DATE OF SERVICE: COLONOSCOPY SUMMARY INDICATION FOR THE PROCEDURE: Screening colonoscopy. The patient was placed in the left lateral decubitus position. Prior to undergoing colonoscopy, digital rectal evaluation was performed. Anal sphincter tone was normal and the perianal reflexes intact. No abnormalities were noted on digital inspection of anal canal or distal rectal vault. The colonoscope was then inserted into the rectum and under direct visualization advanced to cecum. The cecum was identified by identification of ileocecal valve, cecal strap and appendiceal orifice. Photographic documentation was obtained. Careful inspection was made as the colonoscope was withdrawn. The quality of prep was good. FINDINGS: There was no evidence for internal or external hemorrhoids and the rectum was unremarkable. Mild to moderate diverticular disease confined to the sigmoid colon was present without evidence for diverticulitis. No other sigmoid colonic abnormalities were appreciated. The descending colon, splenic flexure, transverse colon, hepatic flexure, ascending colon and cecum were unremarkable. ASSESSMENT: 1. No evidence for neoplasia was identified on today's procedure. As the patient is not aware of any family history for colon cancer, we would advocate consideration for repeat screening colonoscopy in 10 years. 2. Mild to moderate diverticular disease confined to the sigmoid colon was present without evidence for diverticulitis. No other abnormalities noted on today's colonoscopy. I thank you for the referral of this pleasant lady. Job ID: [id number] DocumentID: [id number] Dictated Date: 07/24/2021 08:30:58 Endoscopy Nurse Date: 07/24/2021 13:44:29 Dictated By: VISHAL VAZQUEZ MD
--- NOTE | 2021-07-24 14:41 | Anesthesia-General Post-Op ---
MAC Patient Condition Mental Status/LOC: Same as Preop Cardiovascular: Satisfactory Nausea/Vomiting: Absent Respiratory: Satisfactory Pain: Controlled Complications: Absent Post Op Complications Complications None Follow Up Care/Instructions Patient Instructions None needed. Anesthesiology Discharge Order Discharge Order Patient is doing well, no complaints, stable vital signs, no apparent adverse anesthesia problems. No complications reported per nursing. SAM ATWOOD CRNA Jul 24, 2021 14:41
== END 2021-07-24 09:15 | disposition home or self-care (01) ==
LOC: ENDO 06:50
PROVIDERS: ATTEND Internal Medicine
DX: Z12.11 Encounter for screening for malignant neoplasm of colon (principal); K57.30 Diverticulosis of large intestine without perforation or abscess without bleeding; I10 Essential (primary) hypertension; Z86.010 Personal history of colon polyps; Z79.899 Other long term (current) drug therapy

== ENCOUNTER → 2021-07-29 | Outpatient (CLI) | payer OTHER | LOC: LABNPT 08:03 | PROVIDERS: ATTEND Family Medicine | DX: Z20.822 Contact with and (suspected) exposure to COVID-19 (principal) | CPT/HCPCS: 87636 ==

== ENCOUNTER 2021-08-29 05:31 | Emergency (ER) | payer OTHER ==
[~2021-08-29] VITALS: Ht 172.7 cm; Wt 97.2 kg
[~2021-08-29 05:31] MED LIST changes: -LISI1TAB26 PO; +LISI1TAB48 PO
[2021-08-29] MEDS ORDERED: LACTATED RINGERS 1,000 ML IV ONE (06:00)
[2021-08-29] MEDS ORDERED: LOPERAMIDE 2 MG (IMODIUM) TABLET PO ONE (06:00)
[2021-08-29] MEDS ORDERED: PANTOPRAZOLE 40 MG (PROTONIX) VIAL IV ONE (06:00)
[2021-08-29] MEDS ORDERED: ONDANSETRON 4 MG/2 ML (SDV) Z0FRAN IVP ONE (06:00)
--- NOTE | 2021-08-29 06:05 | ED GI ---
General Chief Complaint: COVID19 Suspect/Confirmed Stated Complaint: DIARRHEA,VOMITING Source of Information: Patient Exam Limitations: No Limitations (TREY LOVE) History of Present Illness Date Seen by Provider: Aug 29, 2021 Time Seen by Provider: 05:49 Initial Comments Patient presents ER by private conveyance with her significant other and chief complaint that since about midnight she has been having intractable nausea vomiting and diarrhea. She is not having a lot of abdominal pain. She says she had a family member with similar symptoms around her a day or 2 ago. She is not having any fevers or chills. She had a colonoscopy a month ago by Dr. Jaramillo which revealed diverticulosis but nothing else of interest. She has had hysterectomy, gallbladder out and a breast biopsy. She is not been able to keep anything more than a few swallows of Sprite down. (TREY LOVE) Allergies and Home Medications Allergies Coded Allergies: No Known Drug Allergies (Unverified , 12/16/10) Patient Home Medication List Home Medication List Reviewed: Yes (TREY LOVE) Calcium Carbonate/Vitamin D3 (Calcium + Vitamin D Tablet) 1 Each Tablet, 1 EACH PO PRN, (Reported) Entered as Reported by: LEXIE MARTELL on 07/15/21 1339 Cetirizine HCl (Zyrtec) 10 Mg Tablet, 10 MG PO DAILY, (Reported) Entered as Reported by: EDIN SOLIS on 08/12/16 1337 Estradiol (Estradiol Tablet) 1 Mg Tablet, 1 MG PO DAILY Prescribed by: AGNES WATSNO on 03/07/19 1048 Lisinopril/Hydrochlorothiazide (Lisinopril-Hctz 20-25 mg Tab) 1 Each Tablet, 0.5 EACH PO HS, (Reported) Entered as Reported by: EDIN SOLIS on 02/28/19 1141 Zinc (Zinc) 50 Mg Tablet, 50 MG PO PRN, (Reported) Entered as Reported by: LEXIE MARTELL on 07/15/21 1339 Review of Systems Review of Systems Constitutional: No chills, No diaphoresis EENTM: No Blurred Vision, No Double Vision Respiratory: Denies Cough, Denies Shortness of Air Cardiovascular: Denies Chest Pain, Denies Lightheadedness Gastrointestinal: Denies Constipated; Diarrhea, Nausea, Poor Fluid Intake, Vomiting Genitourinary: Denies Burning, Denies Discharge, Denies Drainage Musculoskeletal: No back pain, No joint pain (TREY LOVE) All Other Systems Reviewed Negative Unless Noted: Yes (TREY LOVE) Past Hcizvnq-Bhcone-Omdeor Hx Patient Social History Tobacco Use?: No Use of E-Cig and/or Vaping dev: No Substance use?: No Alcohol Use?: No (TREY LOVE) Seasonal Allergies Seasonal Allergies: Yes (TREY LOVE) Past Medical History Surgeries: Yes (R breast bx) Breast, Gallbladder, Hysterectomy Respiratory: No Cardiac: No Neurological: No Reproductive Disorders: No Sexually Transmitted Disease: No Genitourinary: Yes (JESS) Gastrointestinal: No Musculoskeletal: No Endocrine: No HEENT: No Cancer: No Psychosocial: No Integumentary: No Blood Disorders: No (TREY LOVE) Family Medical History Adrenal cancer 19 FATHER Cardiovascular disease 19 FATHER FH: breast cancer G8 SISTER FH: prostate cancer 19 FATHER Hypertension 19 FATHER Physical Exam Vital Signs Vital Signs - First Documented 08/29/21 05:53 Temp 36.8 Pulse 111 Resp 22 B/P (MAP) 156/100 (118) Pulse Ox 99 O2 Delivery Room Air (FREDDIE RAMIREZ MD) Vital Signs Capillary Refill : (TREY LOVE) Height/Weight/BMI Height: 5'8.00" Weight: 215lbs. 0.0oz. 97.464691tm; 33.55 BMI Method:Stated General Appearance: WD/WN, moderate distress HEENT: PERRL/EOMI; No pharynx normal (Dry oral mucosa) Neck: non-tender, full range of motion, normal inspection Respiratory: lungs clear, normal breath sounds, no respiratory distress, no accessory muscle use Cardiovascular: normal peripheral pulses, regular rate, rhythm Gastrointestinal: soft, tenderness (Mild general all 4 quadrants), other (Active bowel) Extremities: normal inspection, normal capillary refill Neurologic/Psychiatric: alert, normal mood/affect, oriented x 3 Skin: normal color, warm/dry (TREY LOVE) Progress/Results/Core Measures Results/Orders Lab Results Laboratory Tests Test 08/29/21 06:00 Range/Units White Blood Count 15.8 H 4.3-11.0 10^3/uL Red Blood Count 4.88 3.80-5.11 10^6/uL Hemoglobin 14.7 11.5-16.0 g/dL Hematocrit 43 35-52 % Mean Corpuscular Volume 87 80-99 fL Mean Corpuscular Hemoglobin 30 25-34 pg Mean Corpuscular Hemoglobin Concent 35 32-36 g/dL Red Cell Distribution Width 12.4 10.0-14.5 % Platelet Count 280 130-400 10^3/uL Mean Platelet Volume 9.4 9.0-12.2 fL Immature Granulocyte % (Auto) 0 % Neutrophils (%) (Auto) 94 H 42-75 % Lymphocytes (%) (Auto) 2 L 12-44 % Monocytes (%) (Auto) 4 0-12 % Eosinophils (%) (Auto) 0 0-10 % Basophils (%) (Auto) 0 0-10 % Neutrophils # (Auto) 14.8 H 1.8-7.8 10^3/uL Lymphocytes # (Auto) 0.3 L 1.0-4.0 10^3/uL Monocytes # (Auto) 0.6 0.0-1.0 10^3/uL Eosinophils # (Auto) 0.0 0.0-0.3 10^3/uL Basophils # (Auto) 0.0 0.0-0.1 10^3/uL Immature Granulocyte # (Auto) 0.1 0.0-0.1 10^3/uL Neutrophils % (Manual) 92 % Lymphocytes % (Manual) 2 % Monocytes % (Manual) 2 % Atypical Lymphocytes 2 % Microcytosis MODERATE Sodium Level 138 135-145 MMOL/L Potassium Level 4.2 3.6-5.0 MMOL/L Chloride Level 103 98-107 MMOL/L Carbon Dioxide Level 24 21-32 MMOL/L Anion Gap 11 5-14 MMOL/L Blood Urea Nitrogen 13 7-18 MG/DL Creatinine 1.00 0.60-1.30 MG/DL Estimat Glomerular Filtration Rate 58 BUN/Creatinine Ratio 13 Glucose Level 138 H 70-105 MG/DL Calcium Level 9.0 8.5-10.1 MG/DL Corrected Calcium 8.8 8.5-10.1 MG/DL Total Bilirubin 0.6 0.1-1.0 MG/DL Aspartate Amino Transf (AST/SGOT) 13 5-34 U/L Alanine Aminotransferase (ALT/SGPT) 9 0-55 U/L Alkaline Phosphatase 82 40-136 U/L C-Reactive Protein High Sensitivity 1.27 H 0.00-0.50 MG/DL Total Protein 7.6 6.4-8.2 GM/DL Albumin 4.3 3.2-4.5 GM/DL Lipase 50 8-78 U/L Influenza Type A (RT-PCR) Not Detected Not Detecte Influenza Type B (RT-PCR) Not Detected Not Detecte SARS-CoV-2 RNA (RT-PCR) Not Detected Not Detecte (FREDDIE RAMIREZ MD) Medications Given in ED Current Medications Medications Dose Ordered Sig/Binu Route Start Time Stop Time Status Last Admin Dose Admin Lactated Ringer's 1,000 ml @ 0 mls/hr Q0M ONCE IV 08/29/21 06:00 08/29/21 06:01 DC 08/29/21 06:02 999 MLS/HR Loperamide HCl 4 mg ONCE ONCE PO 08/29/21 06:00 08/29/21 06:01 DC 08/29/21 06:13 4 MG Ondansetron HCl 8 mg ONCE ONCE IVP 08/29/21 06:00 08/29/21 06:01 DC 08/29/21 06:01 8 MG Pantoprazole 40 mg ONCE ONCE IV 08/29/21 06:00 08/29/21 06:01 DC 08/29/21 06:13 40 MG (FREDDIE RAMIREZ MD) Vital Signs/I&O 08/29/21 05:53 Temp 36.8 Pulse 111 Resp 22 B/P (MAP) 156/100 (118) Pulse Ox 99 O2 Delivery Room Air (FREDDIE RAMIREZ MD) Progress Progress Note : Time: 06:04 Progress Note Ondansetron 8 mg, pantoprazole, Imodium 4 mg, liter of fluids and check some lab s including a lipase, Covid and influenza. (TREY LOVE) Transfer of Care Time: 06:05 Care transferred to: Dr. Cedillo (TREY LOVE) Departure Impression Primary Impression: Nausea vomiting and diarrhea Additional Impression: Pharyngitis Qualified Codes: J02.9 - Acute pharyngitis, unspecified Disposition: HOME, SELF-CARE Condition: Improved Departure-Patient Inst. Decision time for Depature: 08:03 (FREDDIE RAMIREZ MD) Referrals: A[facility] [place] DO (PCP/Family) Primary Care Physician Patient Instructions: Viral Gastroenteritis Add. Discharge Instructions: Try to adhere to a clear liquid diet today. Drink plenty of noncarbonated clear liquids. If you are feeling better tomorrow, gradually advance your diet with small quantities of bland food as tolerated. Avoid fatty or greasy foods or dairy products for a few days after your symptoms resolve. For pain you may take Tylenol (acetaminophen) up to 1000 mg every 6 hours as needed. Antiacid medications such as Pepcid (famotidine), Tums, omeprazole, etc. may also be helpful. Staying in an upright position to prevent acid reflux may help your throat pain. Liquids that coats your throat such as warm Jell-O water, honey, etc. may be helpful in reducing throat pain. Use Zofran (ondansetron) as prescribed for nausea and vomiting. Antidiarrheals such as Imodium may be used sparingly to control your diarrhea. Call with questions or concerns. Return to care if you have worsening symptoms. All discharge instructions reviewed with patient and/or family. Voiced understanding. Scripts Ondansetron (Ondansetron Odt) 4 Mg Tab.rapdis 4 MG SL Q4H PRN for NAUSEA/VOMITING, #10 TAB Prov: FREDDIE RAMIREZ MD 08/29/21 TREY LOVE Aug 29, 2021 06:05 FREDDIE RAMIREZ MD Aug 29, 2021 08:05
[2021-08-29 06:09] LABS: BASOPHILS % (AUTO) 0 % (0-10); EOSINOPHILS % (AUTO) 0 % (0-10); HEMATOCRIT 43 % (35-52); HEMOGLOBIN 14.7 g/dL (11.5-16.0); LYMPHOCYTES # (AUTO) 0.3 10^3/uL (1.0-4.0); LYMPHOCYTES % (AUTO) 2 % (12-44); MEAN CORPUSCULAR HEMOGLOBIN 30 pg (25-34); MEAN CORPUSCULAR HGB CONC 35 g/dL (32-36); MEAN CORPUSCULAR VOLUME 87 fL (80-99); MEAN PLATELET VOLUME 9.4 fL (9.0-12.2); MONOCYTES # (AUTO) 0.6 10^3/uL (0.0-1.0); MONOCYTES % (AUTO) 4 % (0-12); NEUTROPHILS # (AUTO) 14.8 10^3/uL (1.8-7.8); NEUTROPHILS % (AUTO) 94 % (42-75); PLATELET COUNT 280 10^3/uL (130-400); WHITE BLOOD COUNT 15.8 10^3/uL (4.3-11.0)
[2021-08-29 06:26] LABS: ALBUMIN 4.3 GM/DL (3.2-4.5); POTASSIUM 4.2 MMOL/L (3.6-5.0)
[2021-08-29 06:29] LABS: TOTAL PROTEIN 7.6 GM/DL (6.4-8.2)
[2021-08-29 06:30] LABS: BILIRUBIN,TOTAL 0.6 MG/DL (0.1-1.0)
[2021-08-29 06:37] LABS: ATYPICAL LYMPHOCYTES 2 %; LYMPHOCYTES % (MANUAL) 2 %; MICROCYTOSIS MODERATE; MONOCYTES % (MANUAL) 2 %; NEUTROPHILS % (MANUAL) 92 %
[2021-08-29] MEDS ORDERED: ONDA4TAB11 SL (08:07)
[2021-08-29 08:20] VITALS: BP 122/70
== END 2021-08-29 08:20 | disposition home or self-care (01) ==
LOC: EDUNIT# 05:31 → ER 05:34
DX: R11.2 Nausea with vomiting, unspecified (principal); R19.7 Diarrhea, unspecified; J02.9 Acute pharyngitis, unspecified; Z20.822 Contact with and (suspected) exposure to COVID-19
CPT/HCPCS: 36415; 80053; 83690; 85007; 85027; 86141; 87636

== ENCOUNTER → 2021-12-18 | Outpatient (CLI) | payer BC, OTHER ==
[~2021-12-18] MED LIST changes: +ONDA4TAB11 SL
--- NOTE | 2021-12-18 11:00 | Diagnostic Imaging Report ---
INDICATION: Routine screening. COMPARISON: 09/29/2020 and 09/24/2019. TECHNIQUE: 2D and 3D bilateral screening mammography was performed with CAD. FINDINGS: Both breasts are heterogeneously dense, limiting the sensitivity of mammography. A biopsy marker clip in the right breast is again noted. No dominant mass or malignant-appearing microcalcifications are seen. The axillae are unremarkable. IMPRESSION: No mammographic features suspicious for malignancy are identified. ACR BI-RADS Category 2: Benign findings. Result letter will be mailed to the patient. Note: At least 10% of breast cancer is not imaged by mammography. Dictated by: Dictated on workstation # [id number]
== END ==
LOC: RAD 08:00
PROVIDERS: ATTEND Family Medicine
DX: Z12.31 Encounter for screening mammogram for malignant neoplasm of breast (principal)
CPT/HCPCS: 77063; 77067